=== PATIENT | female | born 2000 | race Caucasian/White ===

== ENCOUNTER → 2024-06-09 | Outpatient (REF) | LOC: M EMP 10:15 | PROVIDERS: ATTEND Family Medicine | DX: R09.89 Other specified symptoms and signs involving the circulatory and respiratory systems (principal) ==

== ENCOUNTER → 2024-12-27 | Outpatient (REF) | LOC: M EMP 10:52 | PROVIDERS: ATTEND Family Medicine | DX: Z11.52 Encounter for screening for COVID-19 (principal) ==